=== PATIENT | female | born 1970 | race Caucasian/White ===

== ENCOUNTER 2017-04-02 22:37 | Emergency (ER) | payer BC ==
[2017-04-02 23:37] LABS: BASO % 0.3 % (0.1-1.2); EOS # 0.4 10_X3_uL (0.0-0.4); EOS % 4.4 % (0.7-5.8); GRAN # 6.7 10_X3_uL (1.6-6.1); GRAN % 72.1 % (34.0-71.1); HEMATOCRIT 40.6 % (34-45); HEMOGLOBIN 13.5 g/dL (11.2-15.7); LYMPH # 1.1 10_X3_uL (1.2-3.7); LYMPH % 12.3 % (19.3-51.7); MEAN CORPUSCULAR HEMOGLOBIN 30.8 pg (27.0-33.0); MEAN CORPUSCULAR HGB CONC 33.3 g/dL (32.0-36.0); MEAN CORPUSCULAR VOLUME 92.5 fL (79-95); MONO % 10.9 % (4.7-12.5); PLATELET COUNT 220 x10_3/uL (182-369); RED BLOOD COUNT 4.39 x10_6/uL (3.9-5.2); RED CELL DISTRIBUTION WIDTH 13.4 % (11.7-14.4); WHITE BLOOD COUNT 9.3 x10_3/uL (4.0-10.0)
[2017-04-02 23:38] LABS: URINE BILIRUBIN NEGATIVE (NEGATIVE); URINE BLOOD TRACE (NEGATIVE); URINE GLUCOSE (UA) NORMAL (NORMAL); URINE KETONE NEGATIVE (NEGATIVE); URINE LEUKOCYTE ESTERASE NEGATIVE (NEGATIVE); URINE NITRATE NEGATIVE (NEGATIVE); URINE PROTEIN NEGATIVE (NEGATIVE); UROBILINOGEN NORMAL mg/dL (<1.0)
[2017-04-02 23:52] LABS: URINE BACTERIA 2+ (NONE SEEN); URINE RBC 0-5 /[HPF] (0-2); URINE SQUAMOUS EPITHELIAL CELL 0-10 /[HPF] (NONE SEEN); URINE WBC 0-5 /[HPF] (0-5)
[2017-04-02 23:54] LABS: ALBUMIN 4.2 gm/dL (3.4-5.0); ALKALINE PHOSPHATASE 67 U/L (50-136); ALT/SGPT 20 U/L (3.5-33.9); AST/SGOT 19 U/L (7.04-26.96); BILIRUBIN,TOTAL 2.12 mg/dL (0.0-1.0); BLOOD UREA NITROGEN 13 mg/dL (7-18); CALCIUM 9.3 mg/dL (8.7-10.7); CARBON DIOXIDE 24 mmol/L (21-32); CREATININE 0.9 mg/dL (0.6-1.3); GLUCOSE,RANDOM 129 mg/dL (70-99); SODIUM 136 mmol/L (136-145); TOTAL PROTEIN 7.1 gm/dL (6.4-8.2)
== END 2017-04-03 02:25 | disposition home or self-care (01) ==
LOC: ER 22:37
PROVIDERS: Emergency Medicine
DX: N20.1 Calculus of ureter (principal); R10.32 Left lower quadrant pain; I10 Essential (primary) hypertension; R11.2 Nausea with vomiting, unspecified
CPT/HCPCS: 36415; 80053; 81001; 81025; 85025; 87086; 96374; 96375; 99070; 99284-25